=== PATIENT | male | born 1975 | race Caucasian/White ===

== ENCOUNTER → 2018-05-21 08:58 | Outpatient (CLI) | payer OTHER, SELFPAY ==
--- NOTE | 2018-05-21 08:59 | DI.RAD.S_ITS ---
PROCEDURE: XR KNEE RT 3V INDICATIONS: Fell off ladder on Right foot TECHNIQUE: 3 views of the knee were acquired. COMPARISON: None. FINDINGS: Bones: No fractures or dislocations. No suspicious bony lesions. Soft tissues: No joint effusion. No suspicious soft tissue calcifications. IMPRESSION: No trauma found. Dictated by: Noman Lawson M.D. on 05/21/2018 at 9:46 Approved by: Noman Lawson M.D. on 05/21/2018 at 9:46
--- NOTE | 2018-05-21 08:59 | DI.RAD.S_ITS ---
PROCEDURE: XR ANKLE RT MIN 3V INDICATIONS: Fell off ladder on Right foot TECHNIQUE: 3 views of the ankle were acquired. COMPARISON: [facility], [place], XR FOOT RT MIN 3V, 05/21/2018, 8:38. FINDINGS: Bones: No fractures or dislocations. Ankle mortise is normally aligned. No suspicious bony lesions. Soft tissues: No tibiotalar joint effusion. Achilles tendon appears normal. IMPRESSION: No trauma found. Dictated by: Noman Lawson M.D. on 05/21/2018 at 9:47 Approved by: Noman Lawson M.D. on 05/21/2018 at 9:47
--- NOTE | 2018-05-21 08:59 | DI.RAD.S_ITS ---
PROCEDURE: XR FOOT RT MIN 3V INDICATIONS: Fell off ladder on Right foot TECHNIQUE: 3 views of the foot were acquired. COMPARISON: None. FINDINGS: Bones: No fractures or dislocations. No suspicious bony lesions. Soft tissues: No tibiotalar joint effusion. Achilles tendon appears normal. IMPRESSION: No fracture found. Accessory ossicle lateral border of the cuboid bone incidentally noted. Dictated by: Noman Lawson M.D. on 05/21/2018 at 9:46 Approved by: Noman Lawson M.D. on 05/21/2018 at 9:46
== END ==
PROVIDERS: Family Provider Internal Medicine; PCP Internal Medicine; Visit Provider Physician Assistant
DX: M25.571 Pain in right ankle and joints of right foot (principal); S99.921A Unspecified injury of right foot, initial encounter; W11.XXXA Fall on and from ladder, initial encounter
CPT/HCPCS: 73562; 73610; 73630

== ENCOUNTER → 2025-07-08 09:15 | Outpatient (CLI) | payer BC, SELFPAY ==
[2025-07-08 10:17] LABS: Alanine Aminotransferase 27 IU/L (<50); Albumin 4.1 g/dL (3.5-5.0); Albumin Globulin Ratio 1.6 (1.0-2.8); Alkaline Phosphatase 55 U/L (38-126); Blood Urea Nitrogen 24 mg/dL (9-20); Calcium 9.0 mg/dL (8.4-10.2); Carbon Dioxide 31 mmol/L (22-32); Chloride 104 mmol/L (98-107); Cholesterol 242 mg/dL (140-199); Estimated Glomerular Filt Rate > 60 mL/min (>60); Globulin 2.6 g/dL (1.7-4.1); Glucose 96 mg/dL (70-99); HDL Cholesterol 62 mg/dL (40-60); HEMOLYSIS < 15 (0-50); Potassium 4.3 mmol/L (3.4-5.1); Sodium 137 mmol/L (137-145); Total Protein 6.7 g/dL (6.3-8.2); Triglycerides 81 mg/dL (35-150)
[2025-07-08 10:47] LABS: TSH w/ Reflex to FT4 1.82 uIU/mL (0.47-4.68)
== END ==
PROVIDERS: PCP Internal Medicine; Referring Provider Internal Medicine; Visit Provider Internal Medicine
DX: F41.1 Generalized anxiety disorder (principal); F32.A Depression, unspecified; E03.9 Hypothyroidism, unspecified; Z79.899 Other long term (current) drug therapy; Z13.220 Encounter for screening for lipoid disorders; Z13.1 Encounter for screening for diabetes mellitus; Z13.6 Encounter for screening for cardiovascular disorders
CPT/HCPCS: 36415; 80053; 80061; 84443